=== PATIENT | female | born 1985 | race Caucasian/White ===

== ENCOUNTER 2016-12-25 10:01 | Emergency (ER) | payer SELFPAY ==
[2016-12-25] MEDS ORDERED: TYLENOL PO ONE (10:06)
--- NOTE | 2016-12-25 10:08 | Emergency Department Report ---
Chief Complaint: Sore Throat Stated Complaint: SOB/HEADACHE/BODY ACHE Time Seen by Provider: 12/25/16 10:05 - HPI History of Present Illness: PT c/o sore throat x 6 days no relief with theraflu or motrin, last dose yesterday - ROS Review of Systems: + body aches + headache + sore throat + fever - Exam Physical Exam: pt febrile in triage, + exudative pharyngitis MSE screening note: Focused history and physical exam performed. Due to findings the following was ordered: labs, meds ED Disposition for MSE Condition: Stable
[2016-12-25 10:12] VITALS: BP 142/91
--- NOTE | 2016-12-25 11:05 | Emergency Department Report ---
HPI - General Chief Complaint: Sore Throat Time Seen by Provider: 12/25/16 10:05 - HPI HPI: Patient here complaining of sore throat and body aches with shortness of breath at times for 7 days. She states that she has white patches of pus and redness nondistended on her tonsils. MAXIMUM TEMPERATURE was 101.4 per palpation and she took Motrin. Pain to throat is none of the tendon body ache is 6 out of 10. Denies any drooling. Denies any cough in or chest pain. Denies any nausea or vomiting. Denies any headache. ED Past Medical Hx - Past Medical History Previous Medical History?: No - Surgical History Past Surgical History?: No - Family History Family history: no significant - Social History Smoking Status: Never Smoker Substance Use Type: Non Opiate Pain - Medications Home Medications: Home Medications Medication Instructions Recorded Confirmed Last Taken Type Ibuprofen [Motrin] 600 mg PO Q8H PRN #12 tablet 12/25/16 Unknown Rx Penicillin Vk [Veetids TAB] 2 tabcap PO Q8H #60 tablet 12/25/16 Unknown Rx ED Review of Systems ROS: Stated complaint: SOB/HEADACHE/BODY ACHE Other details as noted in HPI Comment: All other systems reviewed and negative Constitutional: chills, fever. denies: malaise Eyes: denies: vision change ENT: throat pain. denies: ear pain, congestion Respiratory: no symptoms reported Cardiovascular: denies: chest pain, palpitations, edema, syncope Gastrointestinal: denies: abdominal pain, nausea, vomiting, diarrhea Genitourinary: denies: urgency, dysuria, frequency, hematuria, discharge Musculoskeletal: myalgia. denies: back pain, arthralgia Skin: denies: rash Neurological: denies: headache, numbness, paresthesias, confusion, abnormal gait , vertigo Physical Exam - Physical Exam Vital Signs: Vital Signs 12/25/16 12/25/16 10:07 10:14 Temperature 101.4 F H Pulse Rate 114 H Respiratory 20 18 Rate Blood Pressure 142/91 O2 Sat by Pulse 97 Oximetry Vital Signs 12/25/16 12/25/16 12/25/16 10:07 10:14 12:23 Temperature 101.4 F H 99.5 F Pulse Rate 114 H 98 H Respiratory 20 18 Rate Blood Pressure 142/91 O2 Sat by Pulse 97 Oximetry General: This is a 31-year-old female well-nourished well-developed in no acute distress. Physical Exam: Head: Normocephalic atraumatic Mouth: Positive pharyngeal erythema with tonsillar enlargement, erythema and exudate. tongue is normal. Uvula is midline and oral airways patent. mouth is moist. Neck: Supple, full range of motion, no C-spine tenderness. Positive cervical anterior chain adenopathy. Ears:BIateral TM pearly guerrero .bilateral EAC without any redness swelling or drainage. Nose: Bilateral nasal mucosa .maxillary and frontal sinuses nontender to palpate. Eyes: Sclerae l/conjunctiva without injection. Bilateral pupils equal and reactive to light. Bilateral lids are normal. Normal accommodation. Lungs: Clear to auscultate bilaterally, no rhonchi wheezes or rales. Normal work of breathing and no chest wall tenderness CV: S1, S2. Tachycardia 114 ,Regular rhythm negative murmur. Capillary refill is less than 3 seconds Skin: Clean dry and intact, no rashes or lesions Psych: Normal mood and behavior ED Course Vital Signs 12/25/16 12/25/16 10:07 10:14 Temperature 101.4 F H Pulse Rate 114 H Respiratory 20 18 Rate Blood Pressure 142/91 O2 Sat by Pulse 97 Oximetry Vital Signs 12/25/16 12/25/16 12/25/16 10:07 10:14 12:23 Temperature 101.4 F H 99.5 F Pulse Rate 114 H 98 H Respiratory 20 18 Rate Blood Pressure 142/91 O2 Sat by Pulse 97 Oximetry - Reevaluation(s) Reevaluation #1: 12/25/16 12:24 Tylenol 650 mg in triage, Toradol 60 mg and decadron 10 mg im which releive sore throat ED Medical Decision Making - Lab Data Strep test negative and cultures are pending - Medical Decision Making ED course: Patient with exudative tonsillitis with erythema to oropharynx. Enlarged lymph nodes with fever. Strep test is negative and culture pending. Patient will be treated with Penicillin VK and Motrin for exudative tonsillitis.Tylenol 650 mg in triage, Toradol 60 mg and decadron 10 mg im which releive sore throat. Patient discharged home with prescription for penicillin VK and Motrin and to follow-up with primary care physician. Critical care attestation.: If time is entered above; I have spent that time in minutes in the direct care of this critically ill patient, excluding procedure time. ED Disposition Clinical Impression: Exudative tonsillitis, Fever in adult Pharyngitis Qualifiers: Pharyngitis/tonsillitis etiology: unspecified etiology Qualified Code(s): J02.9 - Acute pharyngitis, unspecified Disposition: - TO HOME OR SELFCARE Is pt being admited?: No Does the pt Need Aspirin: No Condition: Stable Instructions: Pharyngitis (ED), Fever in Adults (ED), Tonsillitis (ED) Additional Instructions: gargle with warm salt water Prescriptions: Ibuprofen [Motrin] 600 mg PO Q8H PRN #12 tablet PRN Reason: Pain Penicillin Vk [Veetids TAB] 2 tabcap PO Q8H #60 tablet Referrals: [facility] [Outside] - 3-5 Days Forms: Accompanied Note, Work/School Release Form(ED)
[2016-12-25] MEDS ORDERED: DECADRON IM STA (11:23)
== END 2016-12-25 12:39 | disposition home or self-care (01) ==
LOC: ED 10:01
DX: J03.90 Acute tonsillitis, unspecified (principal)
CPT/HCPCS: 87116; 87430; 96372; 99282; J1100